=== PATIENT | male | born 1940 | race Caucasian/White ===

== ENCOUNTER 2017-01-10 10:19 | Outpatient (CLI) | payer OTHER ==
[~2017-01-10 10:19] MED LIST: AUGMENTIN875 MG PO; BACTRIM DS1 TAB PO; CIALIS20 MG PO; COQ-10100 MG PO; DOCUSATE SODIU100 MG PO; FINASTERIDE5 MG PO; FISH OIL1000 M1 PO; FLOMAX0.4 MG PO; FUROSEMIDE20 MG PO; GARLIC500 M1 PO; GLUCOSAMINE CHONDROI PO; LISINOPRIL40 MG PO; LOTRISONE TOP; LOVASTATIN40 MG PO; METFORMIN HCL500 MG PO; MULTIVITAMIN1 TAB PO; STOOL SOFTENER100 M1 PO; TURMERIC CURCUMIN PO; VIAGRA100 MG PO; VITAMIN C500 M1 PO; VITAMIN E400 UNIT PO; [UNRECOGNIZED DRUG - CODE] PO
--- NOTE | 2017-01-10 11:30 | DIAGNOSTIC IMAGING REPORT ---
PROCEDURE: CT ABD/PELVIS WITH CONTRAST CLINICAL INDICATION: ABD PAIN, initial encounter. TECHNIQUE: 95 ml of Isovue 300 were injected intravenously and axial images were obtained of the entire abdomen and pelvis with sagittal and coronal reformations. Exam performed without and with Valsalva. COMPARISON: CT abdomen/pelvis 12/05/2015 FINDINGS: ABDOMEN: 10 cm diastases of the rectus muscles which increases to 12 cm with Valsalva with mild wide based bulging. Normal liver, gallbladder and spleen (splenules). Punctate calcifications of the head of the pancreas suggestive of chronic pancreatitis. Stable 3 cm left adrenal mass. Normal right adrenal gland. Bilateral renal cysts. Progression of the bilateral extrarenal pelves, likely secondary to distended bladder. Moderate atherosclerosis of the aorta. Scattered diverticula. Lung base are clear. Mild to moderate cardiomegaly. PELVIS: Appendix not visualized. Proximal sigmoid colon suture line. Enlarged prostate with prior TURP and chronic to markedly distended bladder. There is a new 2 cm left internal iliac lymph node. No free fluid. Moderate L5-S1 degenerative changes. IMPRESSION: 1. Rectus muscle diastases which increases with Valsalva 2. New 2 cm left internal iliac lymph node. Neoplastic changes are a consideration. 3. Enlarged prostate with TURP and chronic markedly distended bladder 4. Proximal sigmoid colon suture line 5. Stable 3 cm left adrenal mass All CT scans at this facility use dose modulation, iterative reconstruction, and/or weight-based dosing when appropriate to reduce radiation dose to as low as reasonably achievable.
== END 2017-01-10 23:00 ==
LOC: CT SRH 10:19
DX: R10.9 Unspecified abdominal pain (principal); M62.00 Separation of muscle (nontraumatic), unspecified site; R59.9 Enlarged lymph nodes, unspecified; N40.0 Benign prostatic hyperplasia without lower urinary tract symptoms; N32.89 Other specified disorders of bladder

== ENCOUNTER 2017-01-26 11:18 | Outpatient (CLI) | payer OTHER ==
--- NOTE | 2017-01-26 14:37 | DIAGNOSTIC IMAGING REPORT ---
PROCEDURE: CT LYMPH NODE BIOPSY INDICATION: LEFT ILIAC LYMPH NODE TECHNIQUE: Written informed consent was obtained from the patient prior to the procedure. Risks discussed included but were not limited to bleeding, infection, injury to adjacent structures, pain, nondiagnostic sample, and allergic reaction. It was agreed to proceed. Prone position on the CT table. Preliminary CT imaging demonstrated by 1.8 cm nodule adjacent to left internal iliac vessels just outside the perirectal fat. An appropriate skin entry site was chosen and marked. The skin was prepped and draped in the usual sterile fashion. Skin and subcutaneous tissue was anesthetized thoroughly with 1% lidocaine. Under intermittent CT guidance, a 19 gauge needle was directed into nodule. Through this, seven passes were made with a 20-gauge core biopsy device. Samples were placed into formalin and taken to the lab. CT images were acquired documenting the needle in position within the nodule post deployment of the biopsy tray. Small fragments of tissue were obtained indicating possible internal necrosis of this nodule. The needle was removed, hemostasis was achieved, the skin was cleansed, and a sterile bandage was applied. The patient was helped off the table. The patient left the radiology department in stable condition with standard post procedure instructions. The patient tolerated the procedure well and there were no immediate complications. COMPARISON: CT abdomen pelvis 01/10/2017 and 12/05/2015 FINDINGS: Seven passes with a 20-gauge core biopsy instrument. IMPRESSION: 1. Successful CT-guided biopsy of left internal iliac chain nodule. 2. Pathology is pending.
== END 2017-01-26 23:00 ==
LOC: CT SRH 11:18
PROC: BW211ZZ Computerized Tomography (CT Scan) of Abdomen and Pelvis using Low Osmolar Contrast (ICD-10-PCS; principal; 2017-01-26)
PROC: 07BC3ZX Excision of Pelvis Lymphatic, Percutaneous Approach, Diagnostic (ICD-10-PCS; 2017-01-26)
DX: R59.0 Localized enlarged lymph nodes (principal); R43.2 Parageusia
CPT/HCPCS: 82306; 82445; 90074; 94001; 94060; 95130

== ENCOUNTER 2017-02-09 15:29 | Outpatient (CLI) | payer OTHER | END 2017-02-09 23:00 | LOC: LAB SRH 15:29 | DX: C96.9 Malignant neoplasm of lymphoid, hematopoietic and related tissue, unspecified (principal) | CPT/HCPCS: 90074; 90100; 91046; 95059 ==

== ENCOUNTER 2017-02-10 07:30 | Outpatient (CLI) | payer OTHER ==
--- NOTE | 2017-02-10 10:12 | DIAGNOSTIC IMAGING REPORT ---
PROCEDURE: US KIDNEY/RENAL COMPLETE INDICATION: CANCER STAGING TECHNIQUE: Ford scale and color Doppler sonographic imaging of the kidneys and urinary bladder was obtained. Intrarenal resistive indices were calculated when appropriate. COMPARISON: CT 01/10/2017 FINDINGS: The right kidney measures 12.8 x 6.1 x 5.1 cm. Normal cortical thickness and echogenicity. There is an 8 mm cortical shadowing echogenic focus in the right renal superior pole not seen on the recent CT, nonobstructing collecting system. No hydronephrosis. There is a 2.4 cm exophytic cyst arising from the mid pole. Normal color Doppler blood flow throughout the kidney. Resistive indices in the superior and mid intrarenal parenchymal arteries range from 0.63-0.69. Inferior parenchymal resistive index was not able to be obtained. The left kidney measures 12.7 x 5.6 x 5.7 cm. Normal cortical thickness and echogenicity. There is a 1.2 cm cyst arising from the superior pole. No hydronephrosis or left renal calculi. Normal color Doppler blood flow throughout the kidney. Resistive indices in the intrarenal parenchymal arteries range from 0.55-0.77, minimally elevated in the upper pole, normal elsewhere. The filled urinary bladder has a volume of 1382 ml and a post void residual of 1249 ml. The urinary bladder wall is uniform in thickness without suspicious thickening or irregularity. No bladder debris, calcification or mass. Ureteral jets are not visible. The prostate gland was not visible given patient body habitus. IMPRESSION: 1. Very large postvoid residual in the urinary bladder. Urinary bladder morphology is otherwise normal. 2. Cortical and exophytic cysts in each kidney bilaterally. 3. Right renal cortical calculus versus vascular calcification not seen on the recent CT scan, unlikely to be clinically significant. No obstructing calculi. 4. Minimally elevated resistive index in the upper pole left kidney blood flow. Correlate clinically.
--- NOTE | 2017-02-10 10:39 | DIAGNOSTIC IMAGING REPORT ---
PROCEDURE: CT THORAX WITH CONTRAST INDICATION: CANCER STAGING TECHNIQUE: 125 ml of Isovue 300 was injected intravenously and axial images were obtained of the chest with coronal and sagittal reformations. COMPARISON: CT abdomen pelvis 01/10/2017,CT pulmonary angiogram 11/14/2015 CT abdomen 12/03/2013. FINDINGS: Lungs are clear without evidence of pulmonary nodules or infiltrate. No adenopathy or effusion. Mild atherosclerosis of the aorta. Coronary atherosclerosis. Heart size is normal. Stable 3 cm left adrenal adenoma. Small hiatal hernia. Splenule. Mild degenerative changes of the spine. IMPRESSION: 1. No evidence of pulmonary nodules 2. Stable 3 cm left adrenal adenoma 3. Small hiatal hernia.
== END 2017-02-10 23:00 ==
LOC: US SRH 07:30
DX: C96.9 Malignant neoplasm of lymphoid, hematopoietic and related tissue, unspecified (principal); N28.1 Cyst of kidney, acquired

== ENCOUNTER 2017-02-10 09:07 | Day surgery (SDC) | payer OTHER ==
[~2017-02-10] VITALS: Ht 182.9 cm; Wt 112.3 kg
--- NOTE | 2017-02-10 11:22 | Provider's Discharge Care Plan ---
Problem, Goal, Plan Problem List 1. S/P COLONOSCOPY AND EGD Goals: Screening Instructions: Follow up as directed, Take meds as directed
--- NOTE | 2017-02-10 11:22 | Provider's Discharge Care Plan ---
Problem, Goal, Plan Problem List 1. S/P COLONOSCOPY AND EGD Goals: Screening Instructions: Follow up as directed, Take meds as directed
--- NOTE | 2017-02-10 11:41 | OPERATIVE REPORT ---
DATE OF SURGERY: 02/10/2017 SURGEON: Jaylene Alexander III, MD IT DATA ARCHITECT: None. PREOPERATIVE DIAGNOSIS: 1. Adenocarcinoma, etiology undetermined POSTOPERATIVE DIAGNOSIS: 1. Adenocarcinoma, etiology undetermined 2. Pandiverticulosis of the colon 3. Normal upper gastrointestinal endoscopy PROCEDURES PERFORMED: 1. Colonoscopy 2. Upper gastrointestinal endoscopy with random gastric and distal esophageal mucosal biopsies ANESTHESIA: TIVA. Posterior pharynx Cetacaine spray. INDICATIONS: The patient is a 76-year-old male recently diagnosed as having a metastatic 2 cm lymph node in the iliac region positive for adenocarcinoma, source unknown. Last colonoscopy was approximately 6 years ago. He is asymptomatic otherwise. SURGICAL FINDINGS: Normal-appearing cecum, ascending colon, transverse, descending colon had dupont diverticulosis. The rectal vault appeared grossly normal. Upper GI endoscopy with normal-appearing duodenum and duodenal bulb. The gastric mucosal pattern appeared grossly normal, as did the EG junction and the esophagus. SURGICAL TECHNIQUE: The patient was brought to the operating room and placed in the left lateral decubitus position, where he was administered TIVA and monitored closely by anesthesia. After proper anesthesia had taken effect, a digital rectal examination revealed no masses or stenosis. This was followed by the passage of a fiberoptic video flexible Olympus colonoscope which, without difficulty, negotiated to the cecum. The cecum was identified by anatomical landmarks and anterior abdominal wall ballottement. On withdrawing the scope, the aforementioned findings noted. The scope was withdrawn, retroflexed, good view of the rectal vault obtained. No other pathology identified. The scope was completely withdrawn. The patient tolerated that portion of the procedure well. With the patient still lying in the left lateral decubitus position, his posterior pharynx was sprayed with Cetacaine spray. An Olympus fiberoptic video flexible upper GI endoscope was passed down the patient's posterior pharynx. The esophagus intubated under direct visualization. The scope passed easily down the esophagus, through the EG junction, into the gastric lumen and eventually into the second and third portion of the duodenum. On withdrawing the scope, the aforementioned findings noted. The scope was withdrawn into the gastric lumen and retroflexed with a good view of the cardia, fundus, and EG junction from below, as well as the greater and lesser curvature. Multiple random biopsies were obtained of the gastric mucosa. The scope was withdrawn through the EG junction, where multiple random biopsies were obtained of the distal esophagus. The scope was then completely withdrawn. The patient tolerated the procedure well and was transferred to the recovery room in stable condition. There were no intraoperative or anesthetic complications.
[2017-02-10 12:30] VITALS: BP 163/66
== END 2017-02-10 12:58 | disposition home or self-care (01) ==
LOC: OR SRH 09:07 → SCU SRH 09:07 → OR SRH 11:15
PROVIDERS: Specialist
PROC: 0DJD8ZZ Inspection of Lower Intestinal Tract, Via Natural or Artificial Opening Endoscopic (ICD-10-PCS; principal; 2017-02-10 11:15)
PROC: 0DB38ZX Excision of Lower Esophagus, Via Natural or Artificial Opening Endoscopic, Diagnostic (ICD-10-PCS; principal; 2017-02-10 11:15)
PROC: 0DB68ZX Excision of Stomach, Via Natural or Artificial Opening Endoscopic, Diagnostic (ICD-10-PCS; principal; 2017-02-10 11:15)
DX: C77.5 Secondary and unspecified malignant neoplasm of intrapelvic lymph nodes (principal); K20.0 Eosinophilic esophagitis; K57.30 Diverticulosis of large intestine without perforation or abscess without bleeding; Z86.010 Personal history of colon polyps; Z80.0 Family history of malignant neoplasm of digestive organs; Z90.49 Acquired absence of other specified parts of digestive tract; I11.0 Hypertensive heart disease with heart failure; I50.9 Heart failure, unspecified
CPT/HCPCS: 29229; 29240; 50004; 60001; 82943; 83526

== ENCOUNTER 2017-02-18 08:31 | Outpatient (CLI) | payer OTHER ==
--- NOTE | 2017-02-18 13:58 | DIAGNOSTIC IMAGING REPORT ---
PROCEDURE: NM BONE/JOINT WHOLE BODY INDICATION: Prostate carcinoma. Assess for metastatic disease. TECHNIQUE: Nuclear medicine: 25 mCi of technetium-99m MDP. Whole body anterior posterior delayed static images were obtained. Left femur radiographs: AP and lateral views (four images). Left shoulder radiographs: Three views. COMPARISON: Comparison is made to a CT thorax (02/10/2017) and CT pelvis (01/10/2017). FINDINGS: Nuclear medicine whole body bone scan: There are focal areas of increased uptake in the left pedicle of T11 and left posterior ninth rib without corresponding CT abnormalities. There mild degenerative changes of the thoracic spine. There is focal increased uptake in the left posterior L5 vertebral body with mild sclerosis on CT study suggesting metastatic disease. There are bilateral areas of increased uptake in the iliac wings, although there is only a subtle area of sclerosis of the left lateral iliac wing on CT study. There are two focal areas of increased uptake in the left distal left femur without corresponding radiographic abnormalities. There is marked distention of the urinary bladder. There are mild degenerative changes of the right knee. Left shoulder radiographs: There are mild degenerative changes of the left acromioclavicular and glenohumeral joints. No lytic or sclerotic lesions are identified. Left femur radiographs: Osseous structures are normal. No lytic or sclerotic lesions are identified in the distal femur. IMPRESSION: 1. There are areas of increased uptake in the left T11 pedicle, left T9 rib, posterior L5-S1 lumbar spine, bilateral iliac wings, and left distal femur. These findings are consistent with metastatic disease, although there are minimal radiographic changes. 2. Negative radiographic appearance of the left shoulder. 3. Negative radiographic appearance of the left femur. 4. No evidence of impending fracture. 5. Marked distention of the urinary bladder.
== END 2017-02-18 23:00 | disposition home or self-care (01) ==
LOC: NM SRH 08:31
DX: C61 Malignant neoplasm of prostate (principal); R93.7 Abnormal findings on diagnostic imaging of other parts of musculoskeletal system

== ENCOUNTER 2017-03-02 11:36 | Outpatient (CLI) | payer OTHER ==
--- NOTE | 2017-03-02 12:28 | DIAGNOSTIC IMAGING REPORT ---
PROCEDURE: US VENOUS - RIGHT EXT INDICATION: RT LEG SWELLING TECHNIQUE: Duplex sonography of the deep venous system in the right lower extremity was performed. Compression and augmentation techniques were used. COMPARISON: 12/05/2015 FINDINGS: Each interrogated segment of deep vein from the common femoral vein into the calf veins demonstrates normal compressibility, augmentation and/or color Doppler flow without filling defect. Moderate subcutaneous edema in the calf, similar compared to the prior study. IMPRESSION: 1. No deep venous thrombosis in the right lower extremity. 2. Moderate calf edema.
--- NOTE | 2017-03-02 14:43 | DIAGNOSTIC IMAGING REPORT ---
PROCEDURE: MR LOWER EXT JOINT WO CONT-RT INDICATION: RIGHT KNEE PAIN TECHNIQUE: PD axial, T1 and PD fat sat coronal, PD and PD fat sat sagittal, and sagittal oblique STIR sequence through the ACL. COMPARISON: Bone scan 02/18/2017 FINDINGS: Menisci: Horizontal degenerative tear involving the body and posterior horn of the medial meniscus. Fragmentation and tearing involving the anterior horn and body of the lateral meniscus. Horizontal tearing involving the posterior horn of the lateral meniscus. Lateral extrusion of the body. Ligaments: Anterior and posterior cruciate ligaments are intact. Deep and superficial fibers of the medial collateral ligament are intact. Suboptimal visualization and either severe tendinopathy or full-thickness tear at the origin of the fibulocollateral ligament. Tendinopathy and partial tearing of the biceps femoris tendon fibers. Partial tearing of the popliteus tendon irregularity and laxity of the tibiofibular ligament. The posterolateral capsule appears grossly intact. Extensor mechanism: Normal patellar position. Intact retinacular, distal quadriceps, and patellar tendon fibers. Osseous structures and articular surfaces: Impacted, nondisplaced acute fracture of the posterior aspect of the lateral tibial plateau. There is anterior extension of the fracture plane through the tibial metaphysis. Subtle impaction fracture involving the posterior/ mesial aspect of the medial tibial plateau ( series 3 image 22). Nondisplaced impaction fracture of the fibular head/neck. Severe chondromalacia involving the posterior aspects of the lateral compartment on the femoral and tibial sides. Moderate diffuse medial and patellofemoral compartment chondromalacia. Fluid, soft tissues, and joint space: Moderate to large joint effusion. Infrapatellar bursitis and moderate anterior subcutaneous edema. Moderate wispy intermediate signal within the lateral head of the gastrocnemius muscle and in and around the anterior tibialis muscle. No definite loose bodies in the articular space. IMPRESSION: 1. Nondisplaced posterior lateral tibial plateau fracture, tiny impaction along the posterior medial tibial plateau, and nondisplaced fibular fractures. 2. Extensive lateral meniscal tearing, probably acute on chronic/degenerative. Chronic-appearing medial meniscal tear. 3. Severe tendinopathy and or full-thickness tear of the fibulocollateral ligament origin, and partial thickness tearing of other posterolateral corner structures. 4. Severe lateral compartment chondromalacia, likely chronic, cannot exclude acute, but no obvious cartilage fragment/ loose body identified. 5. Lateral muscular strain. 6. Reactive joint effusion and infrapatellar bursitis. 7. Findings called to Nishi Lim.
== END 2017-03-02 23:00 ==
LOC: MRI SRH 11:36
DX: R22.41 Localized swelling, mass and lump, right lower limb (principal); R60.9 Edema, unspecified; S82.144A Nondisplaced bicondylar fracture of right tibia, initial encounter for closed fracture; S83.281A Other tear of lateral meniscus, current injury, right knee, initial encounter; M94.261 Chondromalacia, right knee; M25.461 Effusion, right knee; M70.41 Prepatellar bursitis, right knee